=== PATIENT | female | born 1980 | race Caucasian/White ===

== ENCOUNTER 2023-09-12 22:24 | Emergency (ER) | payer MEDICAID ==
[~2023-09-12] VITALS: Ht 170.2 cm; Wt 104.3 kg
[2023-09-12 22:30] VITALS: BP_SYST 190; PULSE 93; RESP 16; TEMP 97.9; O2SAT 100
[2023-09-12] MEDS ORDERED: KETOROLAC TROMETHAMINE 30 MG VIAL IM ONE (23:30)
[2023-09-13 00:38] VITALS: BP_SYST 132; PULSE 88; RESP 18; TEMP 98.3; O2SAT 98
[2023-09-13] MEDS ORDERED: ACET-2634 PO (02:38)
[2023-09-13] MEDS ORDERED: IBUP-1969 PO (02:38)
== END 2023-09-13 03:00 | disposition home or self-care (01) ==
LOC: SED 22:24
DX: R60.0 Localized edema (principal); M25.561 Pain in right knee; Z79.899 Other long term (current) drug therapy
CPT/HCPCS: 99285; 84702; 36415; 73560; 93971; 96372; J1885